=== PATIENT | male | born 1995 | race Caucasian/White ===

== ENCOUNTER 2023-06-30 18:39 | Emergency (ER) | payer SELFPAY ==
[~2023-06-30] VITALS: Ht 165.1 cm; Wt 70.0 kg
[2023-06-30 18:49] VITALS: O2SAT 97
[2023-06-30] MEDS ORDERED: IBUPROFEN 600MG TABLET PO ONE (19:45)
[2023-06-30 19:49] LABS: BASOPHILS % 0.6 % (0.0-2.0); EOSINOPHILS % 0.7 % (0.0-5.0); HEMATOCRIT. 43.3 % (42.0-52.0); HEMOGLOBIN. 15.2 g/dL (14.0-18.0); LYMPHOCYTES % 38.4 % (20.0-50.0); MEAN CORPUSCULAR HEMOGLOBIN 31.6 pg (28.0-32.0); MEAN CORPUSCULAR HGB CONC 35.2 g/dL (31.0-37.0); MEAN CORPUSCULAR VOLUME 89.7 fL (80.0-94.0); MEAN PLATELET VOLUME 8.3 fl (7.4-10.4); MONOCYTES % 5.5 % (2.0-8.0); NEUTROPHILS % 54.8 % (40.0-76.0); PLATELET 328 x1000/uL (130-400); RED BLOOD CELL COUNT 4.83 mill/uL (4.7-6.1); RED CELL DISTRIBUTION WIDTH 13.1 % (11.6-14.6); WHITE BLOOD COUNT 7.5 x1000/uL (4.5-11.0)
[2023-06-30 19:58] LABS: CARBON DIOXIDE 27 mEq/L (21-32); CHLORIDE 105 mEq/L (98-107); POTASSIUM 3.7 mEq/L (3.5-5.1); SODIUM 137 mEq/L (136-145)
[2023-06-30 19:59] LABS: CALCIUM 9.7 mg/dL (8.7-10.4)
[2023-06-30 20:04] LABS: CREATININE 0.8 mg/dL (0.6-1.3); GLUCOSE 98 mg/dL (70-105); UREA NITROGEN BLOOD 11 mg/dL (9-23)
[2023-06-30 20:05] LABS: ALANINE AMINOTRANSFERASE 25 IU/L (10-49)
[2023-06-30 20:06] LABS: ALBUMIN 4.8 g/dL (3.2-4.8); ASPARTATE AMINOTRANSFERASE 23 IU/L (<34); BILIRUBIN TOTAL 0.5 mg/dL (0.1-1.0); PROTEIN TOTAL 7.4 g/dL (6.0-8.3)
[2023-06-30 20:13] LABS: TROPONIN I HIGH SENSITIVITY < 4 ng/L (3.0-53)
[2023-06-30] MEDS: IBUPROFEN 600MG TABLET PO NR (21:21)
[2023-07-01 00:50] VITALS: BP 123/74; PULSE 62; RESP 15; TEMP 98.4
== END 2023-07-01 00:53 | disposition home or self-care (01) ==
LOC: ER 18:39
DX: R20.2 Paresthesia of skin (principal); R07.89 Other chest pain
CPT/HCPCS: 36415; 71045; 80053; 84484; 85025; 93005; 99285